=== PATIENT | male | born 1935 | race Caucasian/White ===

== ENCOUNTER → 2018-01-12 | Outpatient (CLI) | payer OTHER, BC | LOC: RAD 12:20 | DX: I51.7 Cardiomegaly (principal); R09.89 Other specified symptoms and signs involving the circulatory and respiratory systems; K44.9 Diaphragmatic hernia without obstruction or gangrene ==

== ENCOUNTER → 2019-01-18 | Outpatient (CLI) | payer OTHER, BC | LOC: RAD 11:45 | DX: J84.9 Interstitial pulmonary disease, unspecified (principal); K44.9 Diaphragmatic hernia without obstruction or gangrene; Z88.8 Allergy status to other drugs, medicaments and biological substances ==

== ENCOUNTER → 2020-01-30 | Outpatient (CLI) | payer OTHER, BC | LOC: CAT 01-17 16:07 | DX: J84.9 Interstitial pulmonary disease, unspecified (principal); I51.7 Cardiomegaly; I77.89 Other specified disorders of arteries and arterioles; K44.9 Diaphragmatic hernia without obstruction or gangrene ==

== ENCOUNTER → 2021-02-25 | Outpatient (CLI) | payer OTHER, BC | LOC: RAD 12:08 | PROVIDERS: ATTEND Internal Medicine | DX: J84.10 Pulmonary fibrosis, unspecified (principal); J84.9 Interstitial pulmonary disease, unspecified; I70.0 Atherosclerosis of aorta; I51.7 Cardiomegaly; K44.9 Diaphragmatic hernia without obstruction or gangrene; M25.78 Osteophyte, vertebrae; I25.10 Atherosclerotic heart disease of native coronary artery without angina pectoris ==

== ENCOUNTER → 2021-02-25 | Outpatient (CLI) | payer OTHER, BC | LOC: LAB 14:15 | PROVIDERS: ATTEND Internal Medicine | DX: Z20.822 Contact with and (suspected) exposure to COVID-19 (principal) ==

== ENCOUNTER → 2021-03-02 | Outpatient (CLI) | payer OTHER, BC ==
--- NOTE | ~2021-03-02 | PFR/MVV ---
[facility] [place] [address] PULMONARY FUNCTION MVV/REPORT Name: PEEWEE MORA Room #: REG HILARY Baez#: [id number] Admission: 03/02/21 Attend Phys: Ezra Foster MD Discharge: Date of : 35 Report #: [id number] THIS REPORT FOR: //name// >> SPIROMETRY: (BTPS) Height: 71 in cm Weight: 170 lbs kg Exam Date: 03/02/21 PRE-RX POST-RX PRED BEST %PRED BEST %PRED %CHG FVC LITERS . 4.14 . 2.08 . 50 . 2.30 . 56 . 11 FEV1 LITERS . 2.55 . 1.35 . 53 . 1.58 . 62 . 17 FEV1/FVC % . 64 . 65 . 101 . 69 . 106 . 6 [id number]% L/Sec . 2.03 . 0.56 . 28 . 0.79 . 39 . 40 PEF L/SEC . 7.98 . 5.42 . 69 . 5.62 . 70 . 4 FEF50/FIF50 UNITLESS . <1.00 . 1.02 . . 1.80 . . MVV L/Min . . . f 1/Min . . . >> LUNG VOLUMES: (BTPS) PRE-RX POST-RX PRED AVG %PRED AVG %PRED %CHG VC Liters . 4.14 . 2.67 . 64 . . . TLC Liters . 6.52 . 3.18 . 49 . . . RV Liters . 2.87 . 0.51 . 18 . . . RV/TLC % . 46 . 16 . 35 . . . FRC PL Liters . 3.99 . 0.94 . 24 . . . FRC N2 Liters . 3.99 . . . . . ERV Liters . 1.43 . 0.43 . 30 . . . IC Liters . 2.86 . 2.28 . 80 . . . >> DIFFUSION: DLCO ml/Min/mmHg . 17.0 . 3.5 . 21 . . . DL [place] ml/Min/mmHg . 17.0 . 3.5 . 21 . . . DLCO/VA ml/Min/mmHg . 3.16 . 2.44 . 77 . . . VA Liters . . 1.44 . . . . COMMENTS: COMMENTS: >> RESISTANCE: [facility] [address] [place] [address] PULMONARY FUNCTION MVV/REPORT Name: PEEWEE MORA Room #: REG [facility].#: [id number] Admission: 03/02/21 Attend Phys: Ezra Foster MD Discharge: Date of : 35 Report #: [id number] PRE-RX PRED AVG %PRED Raw Total cmH20/L/Sec . . 16.83 . Raw Insp cmH20/L/Sec . . 18.18 . Raw Exp cmH20/L/Sec . . 42.45 . Raw cmH20/L/Sec . 1.09 . 3.62 . 331 Gaw L/Sec/cmH20 . 0.958 . 0.276 . 29 sRaw cmH20 Sec . 4.37 . 7.68 . 176 sGaw l/cmH20 Sec . 0.229 . 0.130 . 57 Vtq Liters . . 2.12 . 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 There was significant improvement following bronchodilator. Lung volumes are decreased. Diffusion capacity is markedly reduced, but normal when corrected for alveolar volume. Flow volume loop is consistent with mixed obstructive and restrictive defect. 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 Clinical correlation is recommended. By: Julito Jhaveri MD /nt
== END ==
LOC: PUL 11:47
PROVIDERS: ATTEND Internal Medicine
DX: J84.9 Interstitial pulmonary disease, unspecified (principal)

== ENCOUNTER → 2021-09-03 | Outpatient (CLI) | payer OTHER, BC | LOC: CAT 11:21 | PROVIDERS: ATTEND Internal Medicine | DX: J84.10 Pulmonary fibrosis, unspecified (principal); R91.8 Other nonspecific abnormal finding of lung field; J84.9 Interstitial pulmonary disease, unspecified; K44.9 Diaphragmatic hernia without obstruction or gangrene; I51.7 Cardiomegaly ==